=== PATIENT | male | born 1950 | race Caucasian/White ===

== ENCOUNTER 2018-07-10 18:44 | Inpatient (IN) | payer MEDICARE ==
[~2018-07-10] VITALS: Ht 170.2 cm; Wt 87.1 kg
[~2018-07-10 18:44] MED LIST: CRUTCH4 USE; Cipro500 MG PO; Flagyl500 MG PO; LEVSOD50; Percocet 5-3251 EACH PO; Zofran Odt4 MG SL
[2018-07-10] MEDS ORDERED: LEVSOD50 PO (19:01)
[2018-07-10 19:52] LABS: BASOPHILS ABSOLUTE AUTO 0.07 K/mm3 (0.00-0.23); BASOPHILS PERCENT AUTO 1 % (0-2); EOSINOPHILS PERCENT AUTO 1 % (0-6); Hematocrit 43.8 % (37.0-53.0); Hemoglobin 14.6 g/dL (13.5-17.5); IMMATURE GRAN ABSOLUTE AUTO 0.02 K/mm3 (0.00-0.10); IMMATURE GRAN PERCENT AUTO 0 % (0-1); LYMPHOCYTES ABSOLUTE AUTO 1.21 K/mm3 (0.84-5.20); LYMPHOCYTES PERCENT AUTO 13 % (21-46); MONOCYTES ABSOLUTE AUTO 0.98 K/mm3 (0.16-1.47); MONOCYTES PERCENT AUTO 10 % (4-13); Mean Corpuscular HGB 30.3 pg (26.0-34.0); Mean Corpuscular HGB Conc 33.3 g/dL (31.5-36.5); Mean Corpuscular Volume 91 fL (80-100); NEUTROPHILS ABSOLUTE AUTO 7.18 K/mm3 (1.96-9.15); NEUTROPHILS PERCENT AUTO 75 % (41-73); Platelet Count 230 K/mm3 (150-400); Red Blood Cell Count 4.82 M/mm3 (4.30-5.90); White Blood Cell Count 9.56 K/mm3 (4.00-11.30)
[2018-07-10 20:01] LABS: Alanine Aminotransfer (ALT/SGP 15 U/L (12-78); Albumin, Blood 3.7 g/dL (3.4-5.0); Alk Phos 77 U/L (50-136); Anion Gap 6 mmol/L (6-16); Aspartate Aminotrans (AST/SGOT 7 U/L (12-37); Bilirubin, Total 0.4 mg/dL (0.1-1.0); Blood Urea Nitrogen 20 mg/dL (8-24); Bun/Creatinine Ratio 17.4 (12.0-20.0); CO2, Blood 28 mmol/L (21-32); Chloride, Blood 105 mmol/L (98-108); Creatinine, Blood 1.15 mg/dL (0.60-1.20); Globulin, Blood 3.6 g/dL (2.2-4.0); Glomerular Filtration Rate >60 (60-); Glucose, Blood 106 mg/dL (70-99); Potassium, Blood 4.1 mmol/L (3.5-5.5); Sodium, Blood 139 mmol/L (136-145); Total Protein, Blood 7.3 g/dL (6.4-8.2); Troponin I <0.015 ng/mL (0.000-0.040)
[2018-07-10 21:18] LABS: CHOL/HDL RATIO 5.7; Cholesterol 187 mg/dL (50-200); HDL Cholesterol 33 mg/dL (>39); LDL/HDL RATIO 4.2; Low Density Lipoprotein Chol 139 mg/dL (0-110); Triglycerides 73 mg/dL (30-160); Very Low Density Lipoprot Chol 14 mg/dL (6-32)
[2018-07-10 21:33] LABS: Magnesium, Blood 2.1 mg/dL (1.6-2.4)
[2018-07-10 21:35] LABS: Thyroid Stimulating Hormone 4.87 uIU/mL (0.360-4.800)
[2018-07-10] MEDS ORDERED: Aspir 8181 MG PO (22:37)
[2018-07-11 01:13] LABS: Hematocrit 38.5 % (37.0-53.0); Hemoglobin 13.1 g/dL (13.5-17.5); Mean Corpuscular HGB 30.3 pg (26.0-34.0); Mean Corpuscular Volume 89 fL (80-100); Mean Platelet Volume 10.8 fL (9.1-12.4); Platelet Count 215 K/mm3 (150-400); RDW Coefficient Variation 12.9 % (11.7-14.2); RDW Standard Deviation 42.3 fL (35.1-46.3); Red Blood Cell Count 4.32 M/mm3 (4.30-5.90); White Blood Cell Count 11.72 K/mm3 (4.00-11.30)
[2018-07-11 01:35] LABS: Free Thyroxine 1.13 ng/dL (0.70-1.60)
[2018-07-11 01:36] LABS: Alanine Aminotransfer (ALT/SGP 17 U/L (12-78); Albumin, Blood 3.3 g/dL (3.4-5.0); Alk Phos 68 U/L (50-136); Anion Gap 6 mmol/L (6-16); Aspartate Aminotrans (AST/SGOT 11 U/L (12-37); Bilirubin, Total 0.5 mg/dL (0.1-1.0); Blood Urea Nitrogen 26 mg/dL (8-24); CO2, Blood 27 mmol/L (21-32); Calcium, Blood 8.7 mg/dL (8.5-10.1); Chloride, Blood 106 mmol/L (98-108); Creatinine, Blood 1.04 mg/dL (0.60-1.20); Globulin, Blood 3.3 g/dL (2.2-4.0); Glomerular Filtration Rate >60 (60-); Glucose, Blood 128 mg/dL (70-99); Potassium, Blood 3.8 mmol/L (3.5-5.5); Sodium, Blood 139 mmol/L (136-145); Total Protein, Blood 6.6 g/dL (6.4-8.2)
[2018-07-11 01:38] LABS: Triiodothyronine, Free 2.63 pg/mL (2.18-3.98)
[2018-07-12 08:22] LABS: BASOPHILS ABSOLUTE AUTO 0.05 K/mm3 (0.00-0.23); BASOPHILS PERCENT AUTO 1 % (0-2); EOSINOPHILS ABSOLUTE AUTO 0.12 K/mm3 (0.00-0.68); EOSINOPHILS PERCENT AUTO 1 % (0-6); Hematocrit 32.9 % (37.0-53.0); Hemoglobin 11.1 g/dL (13.5-17.5); IMMATURE GRAN ABSOLUTE AUTO 0.02 K/mm3 (0.00-0.10); IMMATURE GRAN PERCENT AUTO 0 % (0-1); LYMPHOCYTES PERCENT AUTO 23 % (21-46); MONOCYTES ABSOLUTE AUTO 1.04 K/mm3 (0.16-1.47); MONOCYTES PERCENT AUTO 12 % (4-13); Mean Corpuscular HGB 30.7 pg (26.0-34.0); Mean Corpuscular HGB Conc 33.7 g/dL (31.5-36.5); Mean Corpuscular Volume 91 fL (80-100); Mean Platelet Volume 11.2 fL (9.1-12.4); NEUTROPHILS ABSOLUTE AUTO 5.39 K/mm3 (1.96-9.15); NEUTROPHILS PERCENT AUTO 63 % (41-73); Platelet Count 212 K/mm3 (150-400); RDW Coefficient Variation 13.2 % (11.7-14.2); RDW Standard Deviation 43.7 fL (35.1-46.3); Red Blood Cell Count 3.62 M/mm3 (4.30-5.90); White Blood Cell Count 8.62 K/mm3 (4.00-11.30)
[2018-07-12 08:37] LABS: Alanine Aminotransfer (ALT/SGP 13 U/L (12-78); Albumin, Blood 3.4 g/dL (3.4-5.0); Albumin/Globulin Ratio 1.1 (0.8-1.8); Alk Phos 55 U/L (50-136); Anion Gap 7 mmol/L (6-16); Aspartate Aminotrans (AST/SGOT 12 U/L (12-37); Bilirubin, Total 0.5 mg/dL (0.1-1.0); Blood Urea Nitrogen 31 mg/dL (8-24); Bun/Creatinine Ratio 27.7 (12.0-20.0); CO2, Blood 25 mmol/L (21-32); Calcium, Blood 8.7 mg/dL (8.5-10.1); Chloride, Blood 110 mmol/L (98-108); Creatinine, Blood 1.12 mg/dL (0.60-1.20); Globulin, Blood 3.1 g/dL (2.2-4.0); Glomerular Filtration Rate >60 (60-); Glucose, Blood 83 mg/dL (70-99); Potassium, Blood 3.7 mmol/L (3.5-5.5); Sodium, Blood 142 mmol/L (136-145); Total Protein, Blood 6.5 g/dL (6.4-8.2)
[2018-07-13 04:23] LABS: BASOPHILS ABSOLUTE AUTO 0.06 K/mm3 (0.00-0.23); BASOPHILS PERCENT AUTO 1 % (0-2); EOSINOPHILS ABSOLUTE AUTO 0.12 K/mm3 (0.00-0.68); EOSINOPHILS PERCENT AUTO 1 % (0-6); Hematocrit 32.6 % (37.0-53.0); IMMATURE GRAN ABSOLUTE AUTO 0.02 K/mm3 (0.00-0.10); IMMATURE GRAN PERCENT AUTO 0 % (0-1); LYMPHOCYTES ABSOLUTE AUTO 1.96 K/mm3 (0.84-5.20); LYMPHOCYTES PERCENT AUTO 20 % (21-46); MONOCYTES ABSOLUTE AUTO 0.82 K/mm3 (0.16-1.47); MONOCYTES PERCENT AUTO 8 % (4-13); Mean Corpuscular HGB 30.9 pg (26.0-34.0); Mean Corpuscular HGB Conc 33.7 g/dL (31.5-36.5); Mean Corpuscular Volume 92 fL (80-100); Mean Platelet Volume 10.9 fL (9.1-12.4); NEUTROPHILS ABSOLUTE AUTO 6.76 K/mm3 (1.96-9.15); NEUTROPHILS PERCENT AUTO 70 % (41-73); Platelet Count 222 K/mm3 (150-400); RDW Standard Deviation 43.8 fL (35.1-46.3); Red Blood Cell Count 3.56 M/mm3 (4.30-5.90); White Blood Cell Count 9.74 K/mm3 (4.00-11.30)
[2018-07-13 04:48] LABS: Alanine Aminotransfer (ALT/SGP 18 U/L (12-78); Albumin, Blood 3.2 g/dL (3.4-5.0); Albumin/Globulin Ratio 1.1 (0.8-1.8); Alk Phos 55 U/L (50-136); Anion Gap 8 mmol/L (6-16); Aspartate Aminotrans (AST/SGOT 18 U/L (12-37); Bilirubin, Total 0.6 mg/dL (0.1-1.0); Blood Urea Nitrogen 21 mg/dL (8-24); Bun/Creatinine Ratio 22.7 (12.0-20.0); CO2, Blood 22 mmol/L (21-32); Calcium, Blood 8.5 mg/dL (8.5-10.1); Chloride, Blood 107 mmol/L (98-108); Creatinine, Blood 0.92 mg/dL (0.60-1.20); Glomerular Filtration Rate >60 (60-); Glucose, Blood 101 mg/dL (70-99); Potassium, Blood 3.8 mmol/L (3.5-5.5); Sodium, Blood 137 mmol/L (136-145); Total Protein, Blood 6.2 g/dL (6.4-8.2)
[2018-07-14 04:08] LABS: BASOPHILS ABSOLUTE AUTO 0.05 K/mm3 (0.00-0.23); BASOPHILS PERCENT AUTO 1 % (0-2); EOSINOPHILS ABSOLUTE AUTO 0.07 K/mm3 (0.00-0.68); EOSINOPHILS PERCENT AUTO 1 % (0-6); Hematocrit 30.2 % (37.0-53.0); Hemoglobin 10.2 g/dL (13.5-17.5); IMMATURE GRAN ABSOLUTE AUTO 0.02 K/mm3 (0.00-0.10); IMMATURE GRAN PERCENT AUTO 0 % (0-1); LYMPHOCYTES ABSOLUTE AUTO 1.77 K/mm3 (0.84-5.20); LYMPHOCYTES PERCENT AUTO 23 % (21-46); MONOCYTES ABSOLUTE AUTO 0.77 K/mm3 (0.16-1.47); MONOCYTES PERCENT AUTO 10 % (4-13); Mean Corpuscular HGB 30.2 pg (26.0-34.0); Mean Corpuscular HGB Conc 33.8 g/dL (31.5-36.5); Mean Platelet Volume 10.9 fL (9.1-12.4); NEUTROPHILS PERCENT AUTO 65 % (41-73); Platelet Count 239 K/mm3 (150-400); RDW Standard Deviation 42.1 fL (35.1-46.3); Red Blood Cell Count 3.38 M/mm3 (4.30-5.90); White Blood Cell Count 7.58 K/mm3 (4.00-11.30)
[2018-07-14 04:09] LABS: Mean Corpuscular Volume 89 fL (80-100)
[2018-07-14 04:32] LABS: Alanine Aminotransfer (ALT/SGP 25 U/L (12-78); Albumin, Blood 3.1 g/dL (3.4-5.0); Alk Phos 55 U/L (50-136); Anion Gap 8 mmol/L (6-16); Aspartate Aminotrans (AST/SGOT 21 U/L (12-37); Bilirubin, Total 0.6 mg/dL (0.1-1.0); Blood Urea Nitrogen 20 mg/dL (8-24); Bun/Creatinine Ratio 17.5 (12.0-20.0); CO2, Blood 23 mmol/L (21-32); Calcium, Blood 8.5 mg/dL (8.5-10.1); Chloride, Blood 107 mmol/L (98-108); Creatinine, Blood 1.14 mg/dL (0.60-1.20); Glomerular Filtration Rate >60 (60-); Glucose, Blood 95 mg/dL (70-99); Potassium, Blood 3.9 mmol/L (3.5-5.5); Sodium, Blood 138 mmol/L (136-145); Total Protein, Blood 6.1 g/dL (6.4-8.2)
[2018-07-18 05:19] LABS: BASOPHILS ABSOLUTE AUTO 0.05 K/mm3 (0.00-0.23); BASOPHILS PERCENT AUTO 0 % (0-2); EOSINOPHILS ABSOLUTE AUTO 0.02 K/mm3 (0.00-0.68); EOSINOPHILS PERCENT AUTO 0 % (0-6); Hematocrit 27.3 % (37.0-53.0); Hemoglobin 9.2 g/dL (13.5-17.5); IMMATURE GRAN ABSOLUTE AUTO 0.05 K/mm3 (0.00-0.10); IMMATURE GRAN PERCENT AUTO 0 % (0-1); LYMPHOCYTES ABSOLUTE AUTO 1.16 K/mm3 (0.84-5.20); LYMPHOCYTES PERCENT AUTO 9 % (21-46); MONOCYTES ABSOLUTE AUTO 1.05 K/mm3 (0.16-1.47); MONOCYTES PERCENT AUTO 9 % (4-13); Mean Corpuscular HGB 30.6 pg (26.0-34.0); Mean Corpuscular HGB Conc 33.7 g/dL (31.5-36.5); Mean Corpuscular Volume 91 fL (80-100); Mean Platelet Volume 11.4 fL (9.1-12.4); NEUTROPHILS ABSOLUTE AUTO 9.97 K/mm3 (1.96-9.15); NEUTROPHILS PERCENT AUTO 81 % (41-73); Platelet Count 275 K/mm3 (150-400); RDW Coefficient Variation 13.1 % (11.7-14.2); RDW Standard Deviation 42.7 fL (35.1-46.3); Red Blood Cell Count 3.01 M/mm3 (4.30-5.90)
[2018-07-18 05:48] LABS: Alanine Aminotransfer (ALT/SGP 21 U/L (12-78); Albumin, Blood 2.8 g/dL (3.4-5.0); Anion Gap 6 mmol/L (6-16); Aspartate Aminotrans (AST/SGOT 13 U/L (12-37); Blood Urea Nitrogen 34 mg/dL (8-24); Bun/Creatinine Ratio 35.2 (12.0-20.0); CO2, Blood 24 mmol/L (21-32); Calcium, Blood 8.2 mg/dL (8.5-10.1); Chloride, Blood 103 mmol/L (98-108); Creatinine, Blood 0.97 mg/dL (0.60-1.20); Glomerular Filtration Rate >60 (60-); Glucose, Blood 128 mg/dL (70-99); Magnesium, Blood 2.4 mg/dL (1.6-2.4); Phosphorus, Blood 2.6 mg/dL (2.5-4.9); Potassium, Blood 4.1 mmol/L (3.5-5.5); Sodium, Blood 133 mmol/L (136-145)
[2018-07-18 05:49] LABS: Alk Phos 52 U/L (50-136); Bilirubin, Total 0.3 mg/dL (0.1-1.0); Globulin, Blood 2.8 g/dL (2.2-4.0); Total Protein, Blood 5.6 g/dL (6.4-8.2)
[2018-07-18 11:34] LABS: IMMATURE RETIC FRACTION 9.5 % (2.3-16.0); RETIC HGB EQUIVALENT 33.2 pg (28.20-36.60); RETICULOCYTE ABSOLUTE 0.0736 M/mm3 (0.0200-0.1100); RETICULOCYTE COUNT PERCENT 2.46 % (0.50-2.50)
[2018-07-18 11:47] LABS: Percent Saturation 11.9 % (20.0-50.0)
[2018-07-19 05:09] LABS: BASOPHILS ABSOLUTE AUTO 0.06 K/mm3 (0.00-0.23); BASOPHILS PERCENT AUTO 1 % (0-2); EOSINOPHILS ABSOLUTE AUTO 0.06 K/mm3 (0.00-0.68); EOSINOPHILS PERCENT AUTO 1 % (0-6); Hematocrit 26.9 % (37.0-53.0); Hemoglobin 8.8 g/dL (13.5-17.5); IMMATURE GRAN ABSOLUTE AUTO 0.04 K/mm3 (0.00-0.10); IMMATURE GRAN PERCENT AUTO 0 % (0-1); LYMPHOCYTES ABSOLUTE AUTO 1.84 K/mm3 (0.84-5.20); LYMPHOCYTES PERCENT AUTO 20 % (21-46); MONOCYTES ABSOLUTE AUTO 0.96 K/mm3 (0.16-1.47); MONOCYTES PERCENT AUTO 10 % (4-13); Mean Corpuscular HGB 30.6 pg (26.0-34.0); Mean Corpuscular HGB Conc 32.7 g/dL (31.5-36.5); Mean Corpuscular Volume 93 fL (80-100); Mean Platelet Volume 11.4 fL (9.1-12.4); NEUTROPHILS ABSOLUTE AUTO 6.27 K/mm3 (1.96-9.15); NEUTROPHILS PERCENT AUTO 68 % (41-73); Platelet Count 304 K/mm3 (150-400); RDW Coefficient Variation 13.1 % (11.7-14.2); RDW Standard Deviation 44.8 fL (35.1-46.3); Red Blood Cell Count 2.88 M/mm3 (4.30-5.90); White Blood Cell Count 9.23 K/mm3 (4.00-11.30)
[2018-07-19 05:29] LABS: Anion Gap 7 mmol/L (6-16); Blood Urea Nitrogen 25 mg/dL (8-24); Bun/Creatinine Ratio 24.3 (12.0-20.0); CO2, Blood 25 mmol/L (21-32); Calcium, Blood 8.2 mg/dL (8.5-10.1); Chloride, Blood 104 mmol/L (98-108); Creatinine, Blood 1.03 mg/dL (0.60-1.20); Glomerular Filtration Rate >60 (60-); Glucose, Blood 94 mg/dL (70-99); Potassium, Blood 4.4 mmol/L (3.5-5.5); Sodium, Blood 136 mmol/L (136-145)
[2018-07-20 05:01] LABS: BASOPHILS ABSOLUTE AUTO 0.05 K/mm3 (0.00-0.23); BASOPHILS PERCENT AUTO 1 % (0-2); EOSINOPHILS ABSOLUTE AUTO 0.06 K/mm3 (0.00-0.68); EOSINOPHILS PERCENT AUTO 1 % (0-6); Hematocrit 25.3 % (37.0-53.0); Hemoglobin 8.4 g/dL (13.5-17.5); IMMATURE GRAN ABSOLUTE AUTO 0.03 K/mm3 (0.00-0.10); IMMATURE GRAN PERCENT AUTO 0 % (0-1); LYMPHOCYTES ABSOLUTE AUTO 1.91 K/mm3 (0.84-5.20); LYMPHOCYTES PERCENT AUTO 28 % (21-46); MONOCYTES ABSOLUTE AUTO 0.73 K/mm3 (0.16-1.47); MONOCYTES PERCENT AUTO 11 % (4-13); Mean Corpuscular HGB 30.9 pg (26.0-34.0); Mean Corpuscular HGB Conc 33.2 g/dL (31.5-36.5); Mean Corpuscular Volume 93 fL (80-100); NEUTROPHILS ABSOLUTE AUTO 4.03 K/mm3 (1.96-9.15); NEUTROPHILS PERCENT AUTO 59 % (41-73); Platelet Count 311 K/mm3 (150-400); RDW Coefficient Variation 13.2 % (11.7-14.2); RDW Standard Deviation 44.7 fL (35.1-46.3); Red Blood Cell Count 2.72 M/mm3 (4.30-5.90); White Blood Cell Count 6.81 K/mm3 (4.00-11.30)
[2018-07-20 05:28] LABS: Anion Gap 8 mmol/L (6-16); Blood Urea Nitrogen 19 mg/dL (8-24); Bun/Creatinine Ratio 17.8 (12.0-20.0); CO2, Blood 25 mmol/L (21-32); Calcium, Blood 8.2 mg/dL (8.5-10.1); Chloride, Blood 105 mmol/L (98-108); Creatinine, Blood 1.07 mg/dL (0.60-1.20); Glomerular Filtration Rate >60 (60-); Glucose, Blood 90 mg/dL (70-99); Sodium, Blood 138 mmol/L (136-145)
[2018-07-21 05:00] LABS: BASOPHILS ABSOLUTE AUTO 0.05 K/mm3 (0.00-0.23); BASOPHILS PERCENT AUTO 1 % (0-2); EOSINOPHILS ABSOLUTE AUTO 0.08 K/mm3 (0.00-0.68); EOSINOPHILS PERCENT AUTO 1 % (0-6); Hematocrit 25.8 % (37.0-53.0); Hemoglobin 8.4 g/dL (13.5-17.5); IMMATURE GRAN ABSOLUTE AUTO 0.03 K/mm3 (0.00-0.10); IMMATURE GRAN PERCENT AUTO 0 % (0-1); LYMPHOCYTES ABSOLUTE AUTO 1.58 K/mm3 (0.84-5.20); LYMPHOCYTES PERCENT AUTO 22 % (21-46); MONOCYTES PERCENT AUTO 10 % (4-13); Mean Corpuscular HGB 30.2 pg (26.0-34.0); Mean Corpuscular HGB Conc 32.6 g/dL (31.5-36.5); Mean Corpuscular Volume 93 fL (80-100); Mean Platelet Volume 10.6 fL (9.1-12.4); NEUTROPHILS ABSOLUTE AUTO 4.65 K/mm3 (1.96-9.15); NEUTROPHILS PERCENT AUTO 66 % (41-73); Platelet Count 343 K/mm3 (150-400); RDW Coefficient Variation 13.2 % (11.7-14.2); RDW Standard Deviation 44.5 fL (35.1-46.3); Red Blood Cell Count 2.78 M/mm3 (4.30-5.90); White Blood Cell Count 7.09 K/mm3 (4.00-11.30)
[2018-07-21] MEDS ORDERED: ATOR80 PO (11:36)
[2018-07-21] MEDS ORDERED: CYAN500 (11:42)
[2018-07-21] MEDS ORDERED: FOLI1 PO (11:45)
[2018-07-21] MEDS ORDERED: Prinivil10 MG PO (11:47)
[2018-07-21] MEDS ORDERED: METO50 PO (11:49)
[2018-07-21] MEDS ORDERED: Nicoderm Cq1 EAC1 TOP (11:54)
[2018-07-21] MEDS ORDERED: PANT40 PO (11:58)
[2018-07-21] MEDS ORDERED: Seroquel100 MG PO (12:00)
[2018-07-21] MEDS ORDERED: SUCR1 (12:02)
[2018-07-21] MEDS ORDERED: OLAN10A PO (14:16)
== END 2018-07-21 14:37 | disposition home or self-care (01) | DRG 304 ==
LOC: ER 18:44 → ICUW 20:42 → MEDS 20:42 → ICUW 22:11 → MEDS 07-14 21:02 → ENPENDDIS 07-21 11:46 → MEDS 07-21 14:37
PROVIDERS: Emergency Medicine; Family Medicine; Hospitalist; Internal Medicine; Internal Medicine Gastroenterology; Nurse Practitioner Acute Care; ADMIT Internal Medicine
PROC: 0DD78ZX Extraction of Stomach, Pylorus, Via Natural or Artificial Opening Endoscopic, Diagnostic (ICD-10-PCS; 2018-07-19)
PROC: 0DD68ZX Extraction of Stomach, Via Natural or Artificial Opening Endoscopic, Diagnostic (ICD-10-PCS; principal; 2018-07-19 11:00)
DX: I16.1 Hypertensive emergency (principal); K22.11 Ulcer of esophagus with bleeding; I67.4 Hypertensive encephalopathy; D62 Acute posthemorrhagic anemia; Z87.820 Personal history of traumatic brain injury; Z87.898 Personal history of other specified conditions; F17.210 Nicotine dependence, cigarettes, uncomplicated; E03.9 Hypothyroidism, unspecified; E78.5 Hyperlipidemia, unspecified; Z66 Do not resuscitate; Z68.30 Body mass index [BMI] 30.0-30.9, adult; E66.9 Obesity, unspecified; Z91.14 Patient's other noncompliance with medication regimen; R45.1 Restlessness and agitation; G31.09 Other frontotemporal neurocognitive disorder; D64.9 Anemia, unspecified; K22.2 Esophageal obstruction; K44.9 Diaphragmatic hernia without obstruction or gangrene
CPT/HCPCS: 36415; 71046; 80048; 80053; 80061; 82607; 82728; 82746; 82947; 83540; 83550; 83735; 83880; 84100; 84439; 84443; 84481; 84484; 85025; 85027; 85045; 88305; 88342; 93005; 93010; 93306; 96374; 96375; 99285-25; C9113; J0360; J1170; J1630; J1650; J2060; J2916; J7050; J7120

== ENCOUNTER 2018-10-20 06:42 | Day surgery (SDC) | payer MEDICARE ==
[~2018-10-20] VITALS: Ht 162.6 cm; Wt 87.0 kg
[~2018-10-20 06:42] MED LIST changes: +ATOR80 PO; +Aspir 8181 MG PO; +CYAN500; +FOLI1 PO; +LEVSOD50 PO; +METO50 PO; +Nicoderm Cq1 EAC1 TOP; +OLAN10A PO; +PANT40 PO; +Prinivil10 MG PO; +SUCR1; +Seroquel100 MG PO
== END 2018-10-20 09:00 | disposition home or self-care (01) ==
LOC: ORSCSDS 06:42
PROVIDERS: Internal Medicine Gastroenterology
PROC: 0D758ZZ Dilation of Esophagus, Via Natural or Artificial Opening Endoscopic (ICD-10-PCS; principal; 2018-10-20 08:00)
PROC: 0DB98ZX Excision of Duodenum, Via Natural or Artificial Opening Endoscopic, Diagnostic (ICD-10-PCS; principal; 2018-10-20 08:00)
DX: K22.2 Esophageal obstruction (principal); K31.7 Polyp of stomach and duodenum; K29.80 Duodenitis without bleeding; K44.9 Diaphragmatic hernia without obstruction or gangrene; E78.5 Hyperlipidemia, unspecified; E03.9 Hypothyroidism, unspecified; G25.0 Essential tremor; F17.210 Nicotine dependence, cigarettes, uncomplicated; Z79.82 Long term (current) use of aspirin; Z79.899 Other long term (current) drug therapy
CPT/HCPCS: 88305; J1980; J2405; J2704; J7120

== ENCOUNTER 2019-10-21 00:27 | Inpatient (IN) | payer OTHER ==
[~2019-10-21] VITALS: Ht 162.6 cm; Wt 91.9 kg
[2019-10-21 01:11] LABS: Hematocrit 41.5 % (37.0-53.0); Hemoglobin 14.3 g/dL (13.5-17.5); Mean Corpuscular HGB Conc 34.5 g/dL (31.5-36.5); Mean Corpuscular Volume 90 fL (80-100); Mean Platelet Volume 11.3 fL (9.1-12.4); Platelet Count 171 K/mm3 (150-400); RDW Coefficient Variation 13.5 % (11.7-14.2); RDW Standard Deviation 44.4 fL (35.1-46.3); Red Blood Cell Count 4.61 M/mm3 (4.30-5.90); White Blood Cell Count 18.09 K/mm3 (4.00-11.30)
[2019-10-21 01:28] LABS: Alanine Aminotransfer (ALT/SGP 581 U/L (12-78); Albumin, Blood 3.1 g/dL (3.4-5.0); Albumin/Globulin Ratio 0.9 (0.8-1.8); Alk Phos 189 U/L (50-136); Anion Gap 7 mmol/L (6-16); Aspartate Aminotrans (AST/SGOT 317 U/L (12-37); Bilirubin, Total 2.7 mg/dL (0.1-1.0); Blood Urea Nitrogen 21 mg/dL (8-24); Bun/Creatinine Ratio 17.5 (12.0-20.0); CO2, Blood 25 mmol/L (21-32); Calcium, Blood 8.7 mg/dL (8.5-10.1); Chloride, Blood 108 mmol/L (98-108); Globulin, Blood 3.3 g/dL (2.2-4.0); Glomerular Filtration Rate >60 (60-); Glucose, Blood 109 mg/dL (70-99); Potassium, Blood 2.7 mmol/L (3.5-5.5); Sodium, Blood 140 mmol/L (136-145); Total Protein, Blood 6.4 g/dL (6.4-8.2)
[2019-10-21 01:30] LABS: BAND PERCENT MAN 9 % (0-8); BASOPHILS PERCENT MAN 0 % (0-2); EOSINOPHILS ABSOLUTE MAN 0.18 K/mm3 (0.00-0.68); EOSINOPHILS PERCENT MAN 1 % (0-6); LYMPHOCYTES ABSOLUTE MAN 0.72 K/mm3 (0.84-5.20); LYMPHOCYTES PERCENT MAN 4 % (21-46); MONOCYTES ABSOLUTE MAN 0.72 K/mm3 (0.16-1.47); MONOCYTES PERCENT MAN 4 % (4-13); NEUTROPHILS ABSOLUTE MAN 16.46 K/mm3 (1.96-9.15); SEG NEUTROPHILS PERCENT MAN 82 % (41-73); TOTAL CELLS COUNTED 100
[2019-10-21 02:45] LABS: Source, Urine Clean Catch
[2019-10-21 02:48] LABS: Troponin I 0.04 ng/mL (0.000-0.040)
[2019-10-21 02:55] LABS: Bilirubin, Urine Neg (Neg); Blood, Urine Neg (Neg); Glucose Qualitative, Urine Neg (Neg); Ketones, Urine Neg (Neg); Leukocyte Esterase, Urine Neg (Neg); Nitrite, Urine Neg (Neg); Protein, Urine Neg (Neg); Specific Gravity, Urine 1.005 (1.003-1.022); Urobilinogen, Urine NORM (Normal)
[2019-10-21 02:56] LABS: Appearance, Urine Clear (Clear); Color, Urine Yellow (P-Yellow)
--- NOTE | 2019-10-21 07:10 | NUR ---
SHIFT SUMMARY PT NEW ADMIT THIS AM. CONFUSED/REFUSING CARE AT TIME OF ADMISSION, REQUESTING TO SLEEP. ORIENTED TO ROOM + CALL LIGHT USE. PT REFUSED TELEMETRY PLACEMENT + IV POTASSIUM RIDERS AT TIME OF ADMISSION. PT ALLOWED IVF TO BE STARTED BY ED RN. PT DENIED PAIN/NAUSEA SINCE ADMISSION. PT POOR HISTORIAN + DID NOT RESPOND WHEN ASKED ABOUT HOME MEDICATIONS. RESTING IN BED AT THIS TIME WITH BED ALARM ON FOR SAFETY. REPORT TO DAY SHIFT RN. TELEMTRY NOTIFIED OF PT'S REFUSAL AT ADMISSION + DAY SHIFT RN WILL ATTEMPT TO EDUCATE AND PLACE TELEMETRY. CALL LIGHT WITHIN REACH.
--- NOTE | 2019-10-21 07:41 | NUR ---
MORNING ASSESSMENT PT CALM AND COOPERATIVE AT THIS TIME. ALERT AND ORIENTED. PT DENIES PAIN, N/V, SOB. IVF INFUSING. EXPLAINED TREATMENT PLAN TO PT: NPO, IMPORTANCE OF TAKING BP MEDICATIONS, TELE MONITORING, AND IV POTASSIUM. PT AGREEABLE TO TREATMENT AND CARE AND VERBALIZED AN UNDERSTANDING. URINAL PROVIDED AT BEDSIDE. WARM BLANKET GIVEN TO PT. BED ALARM IN PLACE FOR SAFETY PT HAS HX OF TBI AND CAN BE FORGETFUL/CONFUSED AT TIMES. CALL LIGHT WITHIN REACH.
--- NOTE | 2019-10-21 11:23 | NUR ---
DR. ALSTON PLANNING TO KEEP PT NPO AND RECHECK LABS IN THE MORNING. DR. ALSTON TALKED TO ABIEL WHO IS PT'S LEGAL GUARDIAN ABOUT TREATMENT PLAN. THIS RN SPOKE WITH YAMINI MORALES RN WHO IS TO FAX OVER PT'S POLST.
--- NOTE | 2019-10-21 16:02 | NUR ---
SHIFT SUMMARY NO ACUTE CHANGES TODAY. PT REMAINS ALERT AND ORIENTED TO SELF AND FOLLOWING DIRECTIONS, BUT IS OTHERWISE PLEASANTLY CONFUSED ABOUT WHY HE IS AT THE HOSPITAL. PT NOT TRYING TO GET OUT OF BED OR PULLING AT LINES. PT CONT TO DENY PAIN, N/V, AND REPORTS NO COMPLAINTS. STANDS AT THE SIDE OF THE BED WITH SUPERVISION TO USE THE URNIAL TO VOID. IVF + ABX INFUSING PER ORDERS. TELE IN PLACE. PT REMAINS NPO AND PLANNING TO HAVE SURGERY TOMORROW WITH DR. ALSTON. CALL LIGHT WITHIN REACH.
--- NOTE | 2019-10-21 22:13 | NUR ---
DISCUSSION WITH TIFFANIE AT THE BEGINNING OF THE SHIFT, PT STATED "I DONT KNOW HOW ELSE TO TELL YOU ALL, BUT I AM NOT HAVING SURGERY". HE DOES REMEMBER HAVING A CONVERASTION WITH DR ALSTON ABOUT THE SURGERY, BUT DOES NOT FEEL THAT HE NEEDS IT. HE IS HOWEVER CONFUSED ABOUT HOW LONG HE HAS BEEN IN THE HOSPITAL AND WHY HE WAS BROUGHT HERE. HE IS ALSO QUITE SUSPICIOUS, WHEN TOLD ABOUT HIS DIAGNOSIS. i ALSO SPOKE TO THE TITUS BEEBE AFTER SHE SPOKE WITH THE PATIENT BY PHONE. SHE WAS TOLD THE SAME THING BY THE PATIENT, THAT HE DID NOT WANT TO HAVE SURGERY, UNTI IT WAS BAD ENOUGH THAT HE COULD NO LONGER STAND IT.
--- NOTE | 2019-10-22 03:27 | NUR ---
RN NOTIFIED OF URINE COLOR.
[2019-10-22 04:18] LABS: BASOPHILS ABSOLUTE AUTO 0.03 K/mm3 (0.00-0.23); BASOPHILS PERCENT AUTO 0 % (0-2); EOSINOPHILS ABSOLUTE AUTO 0.01 K/mm3 (0.00-0.68); EOSINOPHILS PERCENT AUTO 0 % (0-6); Hematocrit 36.4 % (37.0-53.0); Hemoglobin 12.3 g/dL (13.5-17.5); IMMATURE GRAN ABSOLUTE AUTO 0.19 K/mm3 (0.00-0.10); IMMATURE GRAN PERCENT AUTO 1 % (0-1); LYMPHOCYTES ABSOLUTE AUTO 0.74 K/mm3 (0.84-5.20); LYMPHOCYTES PERCENT AUTO 4 % (21-46); MONOCYTES ABSOLUTE AUTO 1.46 K/mm3 (0.16-1.47); MONOCYTES PERCENT AUTO 8 % (4-13); Mean Corpuscular HGB 30.7 pg (26.0-34.0); Mean Corpuscular HGB Conc 33.8 g/dL (31.5-36.5); Mean Corpuscular Volume 91 fL (80-100); Mean Platelet Volume 11.4 fL (9.1-12.4); NEUTROPHILS ABSOLUTE AUTO 16.14 K/mm3 (1.96-9.15); NEUTROPHILS PERCENT AUTO 87 % (41-73); Platelet Count 134 K/mm3 (150-400); RDW Coefficient Variation 13.9 % (11.7-14.2); Red Blood Cell Count 4.01 M/mm3 (4.30-5.90); White Blood Cell Count 18.57 K/mm3 (4.00-11.30)
[2019-10-22 04:37] LABS: Alanine Aminotransfer (ALT/SGP 262 U/L (12-78); Albumin, Blood 2.7 g/dL (3.4-5.0); Albumin/Globulin Ratio 0.8 (0.8-1.8); Alk Phos 137 U/L (50-136); Anion Gap 5 mmol/L (6-16); Aspartate Aminotrans (AST/SGOT 78 U/L (12-37); Bilirubin, Total 1.2 mg/dL (0.1-1.0); Blood Urea Nitrogen 22 mg/dL (8-24); Bun/Creatinine Ratio 20.4 (12.0-20.0); CO2, Blood 23 mmol/L (21-32); Calcium, Blood 8.4 mg/dL (8.5-10.1); Chloride, Blood 112 mmol/L (98-108); Creatinine, Blood 1.08 mg/dL (0.60-1.20); Globulin, Blood 3.3 g/dL (2.2-4.0); Glomerular Filtration Rate >60 (60-); Glucose, Blood 107 mg/dL (70-99); Potassium, Blood 3.8 mmol/L (3.5-5.5); Sodium, Blood 140 mmol/L (136-145)
--- NOTE | 2019-10-22 05:23 | NUR ---
SHIFT SUMMARY PATIENT HAS HAD NO COMPLAINTS OF PAIN. HE HAS GENERAL WEAKNESS WHEN GETTING OUT OF BED. ONCE HE IS UP, HE WALKS SLOWLY AND ABLE TO AMBULATE TO THE BR TO VOID. HE DOES HAVE URINARY INCONTINENCE, HIS URINE IS DARK YELLOW IN HIS ATTENDS. HE IS COOPERATIVE WITH CARE THIS SHIFT. WE HAVE NOT DISCUSSED HIS POSSIBLE SURGERY THIS AM. THE POA WILL BE TALKING TO THE SURGEON TODAY TO DISCUSS THE PLAN FOR THE DAY. PATIENT HAS BEEN USING HIS CALL LIGHT, AND OCCASIONALLY DOES NOT REMEMBER WHY HE CALLED. BED ALARM HAS BEEN ON ALL NIGHT, BED IN LOWEST POSTITION, CALL LIGHT IN REACH. NO ACUTE CHANGES.
--- NOTE | 2019-10-22 10:57 | NUR ---
DR PEREZ HERE RECENTLY TO SEE PT. DISCUSSED PT'S STATUS. REPORTS MAY D/C TELE.
--- NOTE | 2019-10-22 11:26 | NUR ---
POWER OF CAR RESTORER HERE TO DISCUSS PENDING OR.
--- NOTE | 2019-10-22 12:37 | NUR ---
DR ALSTON HERE TO TALK WITH PT AND POWER OF SERVER DEVELOPER.
--- NOTE | 2019-10-22 15:23 | NUR ---
POA CALLED FOR UPDATE, UPDATE GIVEN. POA REPORTED THAT PT HAS POLST STATING DNR. SEE COPY. DR NOTIFIED, SEE ORDER.
--- NOTE | 2019-10-22 16:10 | NUR ---
SHIFT SUMMARY PT DID NOT WISH TO HAVE SURGERY TODAY, POA IN TO TALK WITH PT. DR ALSTON ALSO IN TO TALK WITH PT AND POA AT SAME TIME, PT CONT TO DENY WANTING TO HAVE PROCEDURE. PT ATE LUNCH WITHOUT DIFFICULY, CONTINUES TO DENY PAIN. POA BOUGHT PT SOME GLASSES AND THEY WERE BROUGHT TO HIM. PT BEEN VOIDING, UP WITH STEADY GAIT. BED ALARM ON RELATED TO TBI. CODE STATUS WAS CHANGED TODAY TO DNR AFTER DISCUSSING PAPERWORK ON CHART WITH POA WHO REPORTED THAT HE HAS BEEN A DNR, WAS NOTIFIED, SEE POLST AND ORDER. PURPLE BAND WAS VERIFIED WITH OTHER RN AND PLACED TO PT'S L WRIST.
--- NOTE | 2019-10-23 05:00 | NUR ---
SHIFT SUMMARY PT APPEARS TO HAVE SLEPT T/O MOST OF SHIFT. PLEASANT AND COOPERATIVE BUT CAN BE IMPULSIVE AT TIMES WITH GETTING OUT OF BED. TEMPERATURE WAS AT 100.8 AT BEGINNING OF SHIFT, NOW 98.6. DENIES ABD PAIN OR DISCOMFORT. ABLE TO AMBULATE TO BATHROOM WITH SBA. ABX ADMINISTERED PER ORDERS. IS CURRENTLY RESTING IN BED WITH CALL LIGHT IN REACH. WILL CONT TO MONITOR AND GIVE REPORT TO ONCOMING RN.
--- NOTE | 2019-10-23 06:33 | NUR ---
SURGERY PT STATES HE IS NOW WILLING TO HAVE THE PAU SURGERY. WILL INFORM ONCOMING RN TO HAVE HER NOTIFY POA AND SURGEON.
--- NOTE | 2019-10-23 08:24 | NUR ---
PT WISHES TO HAVE SURGERY NOTIFIED DR PEREZ AND DR ALSTON. REMOVED PT'S WATER/HELD BREAKFAST.
[2019-10-23 11:57] LABS: BASOPHILS ABSOLUTE AUTO 0.04 K/mm3 (0.00-0.23); BASOPHILS PERCENT AUTO 0 % (0-2); EOSINOPHILS ABSOLUTE AUTO 0.04 K/mm3 (0.00-0.68); EOSINOPHILS PERCENT AUTO 0 % (0-6); Hematocrit 35.4 % (37.0-53.0); Hemoglobin 12.2 g/dL (13.5-17.5); IMMATURE GRAN ABSOLUTE AUTO 0.08 K/mm3 (0.00-0.10); IMMATURE GRAN PERCENT AUTO 1 % (0-1); LYMPHOCYTES ABSOLUTE AUTO 0.77 K/mm3 (0.84-5.20); LYMPHOCYTES PERCENT AUTO 6 % (21-46); MONOCYTES ABSOLUTE AUTO 1.54 K/mm3 (0.16-1.47); MONOCYTES PERCENT AUTO 11 % (4-13); Mean Corpuscular HGB Conc 34.5 g/dL (31.5-36.5); Mean Corpuscular Volume 90 fL (80-100); NEUTROPHILS ABSOLUTE AUTO 11.57 K/mm3 (1.96-9.15); NEUTROPHILS PERCENT AUTO 82 % (41-73); Platelet Count 119 K/mm3 (150-400); RDW Coefficient Variation 14.3 % (11.7-14.2); RDW Standard Deviation 47.1 fL (35.1-46.3); Red Blood Cell Count 3.94 M/mm3 (4.30-5.90); White Blood Cell Count 14.04 K/mm3 (4.00-11.30)
[2019-10-23 12:14] LABS: Alanine Aminotransfer (ALT/SGP 145 U/L (12-78); Albumin, Blood 2.4 g/dL (3.4-5.0); Albumin/Globulin Ratio 0.7 (0.8-1.8); Alk Phos 121 U/L (50-136); Anion Gap 5 mmol/L (6-16); Aspartate Aminotrans (AST/SGOT 35 U/L (12-37); Bilirubin, Total 0.7 mg/dL (0.1-1.0); Blood Urea Nitrogen 20 mg/dL (8-24); Bun/Creatinine Ratio 18.3 (12.0-20.0); CO2, Blood 24 mmol/L (21-32); Calcium, Blood 8.2 mg/dL (8.5-10.1); Chloride, Blood 110 mmol/L (98-108); Creatinine, Blood 1.09 mg/dL (0.60-1.20); Globulin, Blood 3.5 g/dL (2.2-4.0); Glomerular Filtration Rate >60 (60-); Glucose, Blood 103 mg/dL (70-99); Potassium, Blood 3.7 mmol/L (3.5-5.5); Sodium, Blood 139 mmol/L (136-145); Total Protein, Blood 5.9 g/dL (6.4-8.2)
--- NOTE | 2019-10-23 14:36 | NUR ---
PT TO SURGERY
--- NOTE | 2019-10-23 14:47 | NUR ---
REPORT GIVEN TO SNOW BOWMAN. TURNING OVER CARE.
--- NOTE | 2019-10-23 17:54 | NUR ---
ASSUMED CARE OF PT POST OP, S/P LAP PAU, AWAKE, DENIES ANY PAIN OR NAUSEA AT THIS TIME, MONITOR VS, AND OTHER CHANGES, MEDICATE FOR PAIN PRN.
[2019-10-24 03:37] LABS: BASOPHILS PERCENT AUTO 0 % (0-2); EOSINOPHILS PERCENT AUTO 0 % (0-6); Hematocrit 36.7 % (37.0-53.0); Hemoglobin 12.2 g/dL (13.5-17.5); IMMATURE GRAN ABSOLUTE AUTO 0.06 K/mm3 (0.00-0.10); IMMATURE GRAN PERCENT AUTO 1 % (0-1); LYMPHOCYTES ABSOLUTE AUTO 0.41 K/mm3 (0.84-5.20); LYMPHOCYTES PERCENT AUTO 4 % (21-46); MONOCYTES ABSOLUTE AUTO 0.78 K/mm3 (0.16-1.47); MONOCYTES PERCENT AUTO 7 % (4-13); Mean Corpuscular HGB 30.4 pg (26.0-34.0); Mean Corpuscular HGB Conc 33.2 g/dL (31.5-36.5); Mean Corpuscular Volume 92 fL (80-100); Mean Platelet Volume 12.2 fL (9.1-12.4); NEUTROPHILS ABSOLUTE AUTO 9.23 K/mm3 (1.96-9.15); NEUTROPHILS PERCENT AUTO 88 % (41-73); Platelet Count 142 K/mm3 (150-400); RDW Coefficient Variation 14.3 % (11.7-14.2); RDW Standard Deviation 48.5 fL (35.1-46.3); Red Blood Cell Count 4.01 M/mm3 (4.30-5.90); White Blood Cell Count 10.48 K/mm3 (4.00-11.30)
[2019-10-24 03:56] LABS: Alanine Aminotransfer (ALT/SGP 134 U/L (12-78); Albumin, Blood 2.2 g/dL (3.4-5.0); Albumin/Globulin Ratio 0.6 (0.8-1.8); Alk Phos 113 U/L (50-136); Anion Gap 6 mmol/L (6-16); Aspartate Aminotrans (AST/SGOT 50 U/L (12-37); Bilirubin, Total 0.5 mg/dL (0.1-1.0); Blood Urea Nitrogen 20 mg/dL (8-24); Bun/Creatinine Ratio 20.4 (12.0-20.0); CO2, Blood 24 mmol/L (21-32); Calcium, Blood 8.2 mg/dL (8.5-10.1); Chloride, Blood 107 mmol/L (98-108); Creatinine, Blood 0.98 mg/dL (0.60-1.20); Globulin, Blood 3.9 g/dL (2.2-4.0); Glomerular Filtration Rate >60 (60-); Glucose, Blood 163 mg/dL (70-99); Potassium, Blood 4.1 mmol/L (3.5-5.5); Sodium, Blood 137 mmol/L (136-145); Total Protein, Blood 6.1 g/dL (6.4-8.2)
--- NOTE | 2019-10-24 07:33 | NUR ---
SUMMARY S/P LAP PAU TONIGHT WITH MINIMAL DISCOMFORT. VOIDING AND TOLERATIN PO FLUIDS AND LIKES POPSICLES.NO DISTRESS TONIGHT.
--- NOTE | 2019-10-24 16:02 | NUR ---
PT CALLED THIS RN INTO ROOM AT ABOUT 1545 STATING THAT HE WAS CONCERNED ABOUT WHERE HE WOULD BE GOING AFTER DISCHARGE. PT REPORTS THAT HE FEELS WELL ENOUGH TO GO HOME AND DOSEN'T THINK ITS NECCECARY THAT HE GO TO [facility]. HE REPORTS THAT HE NEEDS A SCHOOL GUIDANCE COUNSELOR AND WANTS TO GO HOME WHEN DISCHARGED. PT ALSO REPORTS THAT HE SPOKE TO HIS ON THE PHONE NOT TOO LONG AGO. THIS RN ASSURED PT THAT WHEN HE IS DISCHARGED HE WILL BE LIVING IN THE SAFEST PLACE. PT SEEMED ANXIOUS AND FRUSTRATED WITH THE SITUATION, BUT WAS OPEN TO THIS RN'S EDUCATION AND REASSURANCE. WILL CTM.
--- NOTE | 2019-10-24 17:14 | NUR ---
SUMMARY: PT IS POD1 LAP PAU. NO ACUTE CHANGE TODAY, ABLE TO TOLERATE REG DIET FOR LUNCH AND DINNER. DENIES NAUSEA/PAIN. UP WITH SBA TO BATHROOM FREQUENTLY. LAP SITES WNL. PLAN IS FOR IV ABX TOMORROW AND DC TO [facility]. PT EX /KIRA MADE AWARE OF THIS PLAN. WILL CTM AND REPORT TO RIK ADAMSON.
--- NOTE | 2019-10-24 20:27 | NUR ---
BED ALARM GOING OFF, ENTERED PT ROOM. PT SITTING ON EDGE OF BED AND DEMANDED I GIVE HIM HIS PHONE SO HE COULD CALL A ARMY MANAGER. GAVE PT PHONE. TOLD ME "GET OUT OF MY ROOM, ILL HAVE YOUR JOB." I TOLD PT HE WAS UNABLE TO GO OUT TO SMOKE CURRENTLY WHICH ANGERED HIM. PT REFUSES TO GET BACK IN BED AND KEEP BED ALARM ON, HE DEMANDED I LEAVE AND SHUT HIS DOOR.
--- NOTE | 2019-10-24 20:37 | NUR ---
ASKED PT IF HE WOULD BE WILLING TO TRY A NICOTINE PATCH IF THE HOSPITALIST WOULD ORDER IT. THE PT CALLED ME MULTIPLE EXPLETIVES AND TOLD ME TO LEAVE HIS ROOM. HE DEMANDED AGAIN I LET HIM GO OUT TO SMOKE AND THAT THE PREVIOUS NURSES HAVE LET HIM MULTIPLE TIMES.
--- NOTE | 2019-10-24 22:20 | NUR ---
SECURITY IN TO SEE PT. PT STILL VERY AGITATED. ASKED TO SPEAK TO WOODEN BOAT BUILDER. PT REPORTS WANTING TO LEAVE. PT STATES "I AM LEAVING TONIGHT"
--- NOTE | 2019-10-24 23:50 | NUR ---
RECEIVED HAND OFF FROM Gary VILLEGAS RN USING SBAR AT 2300HRS. PT HAD BECOME UNCOOPERATIVE AND HAD DECIDED THAT HE WAS GOING TO LEAVE. HE APPROACHED THE NURSES STATION AT 2315HRS AND ASKED TO SPEAK WITH SOMEONE IN AUTHORITY. HE ASKED Emily PERERA CNA IF SHE HAD THE AUTHORITY TO MAKE DECISIONS. HE NOTED NURSING APPROACHING NURSES STATION AND THEN STATED, "AH, HERE IS THE ONE I WANT TO TALK TO!" HE WAS ESCORTED BACK TO HIS ROOM AND HE ASKED IF HE COULD HAVE ANOTHER NURSE IN PLACE OF SANDRA. NURSING INFORMED HIM THAT THIS NURSE WAS NOW HIS NURSE. HE VOICED RELIEF AND ACCEPTANCE OF THIS NURSES CARE. DISCUSSED WITH PT THAT HE ALREADY HAD A NICOTINE PATCH IN PLACE, BUT THAT I WOULD BE HAPPY TO REPLACE IT IF HE NEEDED IT TO BE CHANGED. HE VERBALIZED THAT HE WAS FINE WITH IT STAYING UNTIL MORNING IF I TOLD HIME IT WAS OK TILL THEN. PT TOOK HIS HS MEDS AND 0000HRS ABX WITHOUT ISSUE. 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 HE WAS VERY NICE AND APPRECIATIVE OF THE TIME NURSING TOOK IN HIS CARE AND ADDRESSING HIS NEEDS. DENIES FURTHER NEEDS OR WANTS AT THIS TIME. SAFETY MEASURES IN PLACE. WILL CONTINUE TO MONITOR.
--- NOTE | 2019-10-25 00:10 | NUR ---
GAVE REPORT TO SNOW ESTRADA AT APPROX 2300 USING SBAR. PT REQUESTED CHANGE IN NURSING CARE. PT RECEPTIVE OF NEW NURSE AND ACCEPTED HER CARE.
--- NOTE | 2019-10-25 05:18 | NUR ---
SHIFT SUMMARY LYING IN SEMI FOWLERS WITH EYES CLOSED. HAS CONTINUED TO BE COOPERATIVE WITH CARE. PAIN MANAGED WITH PRN PAIN MEDS. STERI STRIPS TO ABD X4 ARE C/D/I. TO RETURNING TO [facility] TODAY. DENIES FURTHER NEEDS OR WANTS AT THIS TIME. SAFETY MEASURES IN PLACE. WILL GIVE HAND OFF TO ONCOMING SHIFT USING SBAR DURING BEDSIDE REPORT.
[2019-10-25] MEDS ORDERED: HYDR1TAB94 PO (08:17)
--- NOTE | 2019-10-25 08:36 | NUR ---
DISCHARGE DISCHARGE ORDERS FAXED OVER TO [facility] AND REPORT GIVEN TO JEFFREY ADAMSON. TRANSPORT TO COME FLATTENING PRESS OPERATOR PT AT 0915. IV DC'D. GATHERING PERSONAL BELONGINGS AT THIS TIME.
== END 2019-10-25 09:13 | disposition home or self-care (01) | DRG 854 ==
LOC: ER 00:27 → SURS 04:52
PROVIDERS: Emergency Medicine; Internal Medicine; Surgery; ADMIT Internal Medicine
PROC: 0FT44ZZ Resection of Gallbladder, Percutaneous Endoscopic Approach (ICD-10-PCS; principal; 2019-10-23 14:00)
DX: A41.9 Sepsis, unspecified organism (principal); K80.00 Calculus of gallbladder with acute cholecystitis without obstruction; I10 Essential (primary) hypertension; Z87.820 Personal history of traumatic brain injury; E03.9 Hypothyroidism, unspecified; E78.5 Hyperlipidemia, unspecified; F17.210 Nicotine dependence, cigarettes, uncomplicated; Z66 Do not resuscitate; G25.0 Essential tremor; E87.6 Hypokalemia
CPT/HCPCS: 36415; 71045; 76705; 80053; 81003; 83605; 83690; 83735; 83880; 84132; 84484; 85025; 87040; 88304; 96365; 96368; 99285-25; A9270-GY; J0692; J1100; J1885; J2250; J2405; J2704; J2710; J3010; J3480; J7030; J7050; J7120

== ENCOUNTER → 2020-04-13 | Outpatient (CLI) | payer OTHER ==
[~2020-04-13] MED LIST changes: +HYDR1TAB94 PO
[2020-04-13 13:35] LABS: BASOPHILS ABSOLUTE AUTO 0.04 K/mm3 (0.00-0.23); BASOPHILS PERCENT AUTO 1 % (0-2); EOSINOPHILS ABSOLUTE AUTO 0.14 K/mm3 (0.00-0.68); EOSINOPHILS PERCENT AUTO 3 % (0-6); Hematocrit 39.2 % (37.0-53.0); Hemoglobin 13.1 g/dL (13.5-17.5); IMMATURE GRAN ABSOLUTE AUTO 0.01 K/mm3 (0.00-0.10); IMMATURE GRAN PERCENT AUTO 0 % (0-1); LYMPHOCYTES PERCENT AUTO 24 % (21-46); MONOCYTES ABSOLUTE AUTO 0.61 K/mm3 (0.16-1.47); MONOCYTES PERCENT AUTO 12 % (4-13); Mean Corpuscular HGB 29.6 pg (26.0-34.0); Mean Corpuscular HGB Conc 33.4 g/dL (31.5-36.5); Mean Corpuscular Volume 89 fL (80-100); Mean Platelet Volume 11.4 fL (9.1-12.4); NEUTROPHILS ABSOLUTE AUTO 3.06 K/mm3 (1.96-9.15); NEUTROPHILS PERCENT AUTO 60 % (41-73); Platelet Count 196 K/mm3 (150-400); RDW Coefficient Variation 13.9 % (11.7-14.2); RDW Standard Deviation 44.8 fL (35.1-46.3); Red Blood Cell Count 4.43 M/mm3 (4.30-5.90); White Blood Cell Count 5.06 K/mm3 (4.00-11.30)
[2020-04-13 14:30] LABS: Alanine Aminotransfer (ALT/SGP 22 U/L (12-78); Albumin, Blood 3.3 g/dL (3.4-5.0); Albumin/Globulin Ratio 0.9 (0.8-1.8); Alk Phos 95 U/L (50-136); Anion Gap 6 mmol/L (6-16); Aspartate Aminotrans (AST/SGOT 17 U/L (12-37); Bilirubin, Total 0.5 mg/dL (0.1-1.0); Blood Urea Nitrogen 16 mg/dL (8-24); Bun/Creatinine Ratio 13.8 (12.0-20.0); CO2, Blood 28 mmol/L (21-32); Calcium, Blood 9.4 mg/dL (8.5-10.1); Chloride, Blood 107 mmol/L (98-108); Creatinine, Blood 1.16 mg/dL (0.60-1.20); Globulin, Blood 3.6 g/dL (2.2-4.0); Glomerular Filtration Rate >60 (60-); Glucose, Blood 91 mg/dL (70-99); Potassium, Blood 3.7 mmol/L (3.5-5.5); Sodium, Blood 141 mmol/L (136-145); Total Protein, Blood 6.9 g/dL (6.4-8.2)
== END | disposition home or self-care (01) ==
LOC: LAB 12:42 → LAB SHORT 12:42
PROVIDERS: Physician Assistant Medical
DX: I10 Essential (primary) hypertension (principal)
CPT/HCPCS: 80053; 82550; 85025

== ENCOUNTER → 2020-06-14 | Outpatient (CLI) | payer OTHER ==
[2020-06-14 13:11] LABS: Source, Urine Clean Catch
[2020-06-14 13:47] LABS: Appearance, Urine Clear (Clear); Bilirubin, Urine Neg (Neg); Blood, Urine Neg (Neg); Color, Urine Yellow (P-Yellow); Glucose Qualitative, Urine Neg (Neg); Ketones, Urine Neg (Neg); Leukocyte Esterase, Urine Neg (Neg); Nitrite, Urine Neg (Neg); Protein, Urine Neg (Neg); Urobilinogen, Urine NORM (Normal)
== END | disposition home or self-care (01) ==
LOC: LAB 09:25
PROVIDERS: Physician Assistant Medical
DX: N39.0 Urinary tract infection, site not specified (principal)
CPT/HCPCS: 81003

== ENCOUNTER 2021-02-27 19:43 | Emergency (ER) | payer OTHER ==
[~2021-02-27] VITALS: Ht 167.6 cm; Wt 90.7 kg
[2021-02-27] MEDS ORDERED: Prozac40 MG PO (20:15)
[2021-02-27] MEDS ORDERED: FOLI1 PO (20:15)
[2021-02-27] MEDS ORDERED: HYDCHL25 PO (20:15)
[2021-02-27] MEDS ORDERED: LEVSOD25 PO (20:16)
[2021-02-27] MEDS ORDERED: GUAI600T33 PO (20:16)
[2021-02-27] MEDS ORDERED: PANT40 PO (20:18)
[2021-02-27 20:19] LABS: BASOPHILS ABSOLUTE AUTO 0.01 K/mm3 (0.00-0.23); BASOPHILS PERCENT AUTO 0 % (0-2); EOSINOPHILS PERCENT AUTO 0 % (0-6); Hematocrit 37.3 % (37.0-53.0); IMMATURE GRAN ABSOLUTE AUTO 0.01 K/mm3 (0.00-0.10); IMMATURE GRAN PERCENT AUTO 0 % (0-1); LYMPHOCYTES ABSOLUTE AUTO 0.42 K/mm3 (0.84-5.20); LYMPHOCYTES PERCENT AUTO 7 % (21-46); MONOCYTES PERCENT AUTO 3 % (4-13); Mean Corpuscular HGB 30.4 pg (26.0-34.0); Mean Corpuscular HGB Conc 34.9 g/dL (31.5-36.5); Mean Corpuscular Volume 87 fL (80-100); Mean Platelet Volume 11.7 fL (9.1-12.4); NEUTROPHILS ABSOLUTE AUTO 5.27 K/mm3 (1.96-9.15); NEUTROPHILS PERCENT AUTO 89 % (41-73); Platelet Count 165 K/mm3 (150-400); RDW Coefficient Variation 13.8 % (11.7-14.2); RDW Standard Deviation 43.9 fL (35.1-46.3); Red Blood Cell Count 4.28 M/mm3 (4.30-5.90); White Blood Cell Count 5.91 K/mm3 (4.00-11.30)
[2021-02-27] MEDS ORDERED: Vitamin B-121000 MCG PO (20:19)
[2021-02-27] MEDS ORDERED: QUET200 PO (20:19)
[2021-02-27] MEDS ORDERED: VITAMIN D31000 UNI1 PO (20:20)
[2021-02-27] MEDS ORDERED: Acetaminophen650 M1 PO (20:20)
[2021-02-27] MEDS ORDERED: ONDA4 PO (20:22)
[2021-02-27] MEDS ORDERED: Haldol5 MG/1 ML (20:22)
[2021-02-27 20:37] LABS: Albumin, Blood 2.4 g/dL (3.4-5.0); Albumin/Globulin Ratio 0.6 (0.8-1.8); Bilirubin, Total 0.9 mg/dL (0.1-1.0); Bun/Creatinine Ratio 33.6 (12.0-20.0); Calcium, Blood 8.2 mg/dL (8.5-10.1); Creatinine, Blood 1.31 mg/dL (0.60-1.20); Globulin, Blood 3.8 g/dL (2.2-4.0); Potassium, Blood 3.4 mmol/L (3.5-5.5); Total Protein, Blood 6.2 g/dL (6.4-8.2)
[2021-02-27] MEDS ORDERED: Vibramycin100 MG PO (21:19)
[2021-02-27] MEDS ORDERED: DEXA4 PO (21:19)
== END 2021-02-27 23:10 | disposition home or self-care (01) ==
LOC: ER 19:43
PROVIDERS: Emergency Medicine
DX: U07.1 COVID-19 (principal); R09.02 Hypoxemia; J18.9 Pneumonia, unspecified organism; F03.90 Unspecified dementia, unspecified severity, without behavioral disturbance, psychotic disturbance, mood disturbance, and anxiety; E86.0 Dehydration; E03.9 Hypothyroidism, unspecified; Z87.891 Personal history of nicotine dependence; Z88.0 Allergy status to penicillin; Z79.899 Other long term (current) drug therapy; Z79.890 Hormone replacement therapy
CPT/HCPCS: 71045; 80053; 85025; 93005; 93010; 99285-25

== ENCOUNTER → 2021-03-14 | Outpatient (CLI) | payer OTHER ==
[~2021-03-14] MED LIST changes: +Acetaminophen650 M1 PO; +DEXA4 PO; +GUAI600T33 PO; +HYDCHL25 PO; +Haldol5 MG/1 ML; +LEVSOD25 PO; +ONDA4 PO; +Prozac40 MG PO; +QUET200 PO; +VITAMIN D31000 UNI1 PO; +Vibramycin100 MG PO; +Vitamin B-121000 MCG PO
[2021-03-14 13:27] LABS: BASOPHILS ABSOLUTE AUTO 0.05 K/mm3 (0.00-0.23); BASOPHILS PERCENT AUTO 1 % (0-2); EOSINOPHILS ABSOLUTE AUTO 0.03 K/mm3 (0.00-0.68); EOSINOPHILS PERCENT AUTO 1 % (0-6); Hematocrit 36.5 % (37.0-53.0); Hemoglobin 12.1 g/dL (13.5-17.5); IMMATURE GRAN ABSOLUTE AUTO 0.02 K/mm3 (0.00-0.10); IMMATURE GRAN PERCENT AUTO 0 % (0-1); LYMPHOCYTES PERCENT AUTO 18 % (21-46); MONOCYTES ABSOLUTE AUTO 0.73 K/mm3 (0.16-1.47); MONOCYTES PERCENT AUTO 15 % (4-13); Mean Corpuscular HGB 30.4 pg (26.0-34.0); Mean Corpuscular HGB Conc 33.2 g/dL (31.5-36.5); Mean Corpuscular Volume 92 fL (80-100); NEUTROPHILS ABSOLUTE AUTO 3.28 K/mm3 (1.96-9.15); NEUTROPHILS PERCENT AUTO 65 % (41-73); RDW Coefficient Variation 14.5 % (11.7-14.2); RDW Standard Deviation 48.2 fL (35.1-46.3); Red Blood Cell Count 3.98 M/mm3 (4.30-5.90); White Blood Cell Count 5.01 K/mm3 (4.00-11.30)
[2021-03-14 13:43] LABS: Mean Platelet Volume 11.7 fL (9.1-12.4); Platelet Count 148 K/mm3 (150-400)
[2021-03-14 23:05] LABS: Alanine Aminotransfer (ALT/SGP 38 U/L (12-78); Albumin, Blood 2.4 g/dL (3.4-5.0); Albumin/Globulin Ratio 0.6 (0.8-1.8); Alk Phos 72 U/L (50-136); Anion Gap 8 mmol/L (6-16); Aspartate Aminotrans (AST/SGOT 28 U/L (12-37); Bilirubin, Total 0.4 mg/dL (0.1-1.0); Blood Urea Nitrogen 16 mg/dL (8-24); Bun/Creatinine Ratio 14.3 (12.0-20.0); CHOL/HDL RATIO 4.9; CO2, Blood 24 mmol/L (21-32); Calcium, Blood 8.7 mg/dL (8.5-10.1); Chloride, Blood 107 mmol/L (98-108); Cholesterol 180 mg/dL (50-200); Creatinine, Blood 1.12 mg/dL (0.60-1.20); Globulin, Blood 3.7 g/dL (2.2-4.0); Glomerular Filtration Rate >60 (60-); Glucose, Blood 73 mg/dL (70-99); HDL Cholesterol 37 mg/dL (>39); LDL/HDL RATIO 3.3; Low Density Lipoprotein Chol 122 mg/dL (0-110); Potassium, Blood 4.1 mmol/L (3.5-5.5); Sodium, Blood 139 mmol/L (136-145); Total Protein, Blood 6.1 g/dL (6.4-8.2); Triglycerides 105 mg/dL (30-160); Very Low Density Lipoprot Chol 21 mg/dL (6-32)
== END | disposition home or self-care (01) ==
LOC: LAB 07:45 → LAB SHORT 07:45
PROVIDERS: Physician Assistant Medical
DX: E78.5 Hyperlipidemia, unspecified (principal); I10 Essential (primary) hypertension
CPT/HCPCS: 80053; 80061; 84443; 85025

== ENCOUNTER → 2021-08-27 | Outpatient (CLI) | payer OTHER ==
[2021-08-27 13:37] LABS: BASOPHILS ABSOLUTE AUTO 0.05 K/mm3 (0.00-0.23); BASOPHILS PERCENT AUTO 1 % (0-2); EOSINOPHILS ABSOLUTE AUTO 0.07 K/mm3 (0.00-0.68); EOSINOPHILS PERCENT AUTO 1 % (0-6); Hematocrit 40.1 % (37.0-53.0); Hemoglobin 13.3 g/dL (13.5-17.5); IMMATURE GRAN ABSOLUTE AUTO 0.02 K/mm3 (0.00-0.10); IMMATURE GRAN PERCENT AUTO 0 % (0-1); LYMPHOCYTES ABSOLUTE AUTO 1.54 K/mm3 (0.84-5.20); LYMPHOCYTES PERCENT AUTO 25 % (21-46); MONOCYTES ABSOLUTE AUTO 0.69 K/mm3 (0.16-1.47); MONOCYTES PERCENT AUTO 11 % (4-13); Mean Corpuscular HGB 29.8 pg (26.0-34.0); Mean Corpuscular HGB Conc 33.2 g/dL (31.5-36.5); Mean Corpuscular Volume 90 fL (80-100); Mean Platelet Volume 11.6 fL (9.1-12.4); NEUTROPHILS ABSOLUTE AUTO 3.77 K/mm3 (1.96-9.15); NEUTROPHILS PERCENT AUTO 62 % (41-73); Platelet Count 217 K/mm3 (150-400); RDW Standard Deviation 45.9 fL (35.1-46.3); Red Blood Cell Count 4.46 M/mm3 (4.30-5.90); White Blood Cell Count 6.14 K/mm3 (4.00-11.30)
[2021-08-27 15:07] LABS: Alanine Aminotransfer (ALT/SGP 23 U/L (12-78); Albumin, Blood 3.2 g/dL (3.4-5.0); Albumin/Globulin Ratio 1.1 (0.8-1.8); Alk Phos 80 U/L (50-136); Anion Gap 6 mmol/L (6-16); Aspartate Aminotrans (AST/SGOT 11 U/L (12-37); Bilirubin, Total 0.4 mg/dL (0.1-1.0); Blood Urea Nitrogen 19 mg/dL (8-24); Bun/Creatinine Ratio 17.6 (12.0-20.0); CHOL/HDL RATIO 6.1; CO2, Blood 27 mmol/L (21-32); Calcium, Blood 8.7 mg/dL (8.5-10.1); Chloride, Blood 107 mmol/L (98-108); Cholesterol 215 mg/dL (50-200); Creatinine, Blood 1.08 mg/dL (0.60-1.20); Glomerular Filtration Rate >60 (60-); Glucose, Blood 88 mg/dL (70-99); HDL Cholesterol 35 mg/dL (>39); LDL/HDL RATIO 4.4; Low Density Lipoprotein Chol 155 mg/dL (0-110); Potassium, Blood 3.9 mmol/L (3.5-5.5); Sodium, Blood 140 mmol/L (136-145); Total Protein, Blood 6.2 g/dL (6.4-8.2); Triglycerides 127 mg/dL (30-160); Very Low Density Lipoprot Chol 25 mg/dL (6-32)
== END ==
LOC: LAB 12:15 → LAB SHORT 12:15
PROVIDERS: Physician Assistant Medical
DX: E78.5 Hyperlipidemia, unspecified (principal); I10 Essential (primary) hypertension
CPT/HCPCS: 80053; 80061; 84443; 85025

== ENCOUNTER 2022-01-11 07:22 | Emergency (ER) | payer OTHER ==
[~2022-01-11] VITALS: Ht 162.6 cm; Wt 72.6 kg
[2022-01-11 07:57] LABS: BASOPHILS ABSOLUTE AUTO 0.04 K/mm3 (0.00-0.23); BASOPHILS PERCENT AUTO 1 % (0-2); EOSINOPHILS ABSOLUTE AUTO 0.04 K/mm3 (0.00-0.68); EOSINOPHILS PERCENT AUTO 1 % (0-6); Hematocrit 39.3 % (37.0-53.0); Hemoglobin 13.5 g/dL (13.5-17.5); IMMATURE GRAN ABSOLUTE AUTO 0.02 K/mm3 (0.00-0.10); IMMATURE GRAN PERCENT AUTO 0 % (0-1); LYMPHOCYTES PERCENT AUTO 11 % (21-46); MONOCYTES ABSOLUTE AUTO 0.78 K/mm3 (0.16-1.47); MONOCYTES PERCENT AUTO 11 % (4-13); Mean Corpuscular HGB 30.5 pg (26.0-34.0); Mean Corpuscular HGB Conc 34.4 g/dL (31.5-36.5); Mean Corpuscular Volume 89 fL (80-100); Mean Platelet Volume 10.5 fL (9.1-12.4); NEUTROPHILS ABSOLUTE AUTO 5.43 K/mm3 (1.96-9.15); NEUTROPHILS PERCENT AUTO 76 % (41-73); Platelet Count 187 K/mm3 (150-400); RDW Coefficient Variation 13.4 % (11.7-14.2); RDW Standard Deviation 43.9 fL (35.1-46.3); Red Blood Cell Count 4.42 M/mm3 (4.30-5.90); White Blood Cell Count 7.11 K/mm3 (4.00-11.30)
[2022-01-11 08:08] LABS: Albumin, Blood 3.3 g/dL (3.4-5.0); Albumin/Globulin Ratio 0.9 (0.8-1.8); Bilirubin, Total 0.6 mg/dL (0.1-1.0); Bun/Creatinine Ratio 18.3 (12.0-20.0); Calcium, Blood 9.2 mg/dL (8.5-10.1); Creatinine, Blood 0.99 mg/dL (0.60-1.20); Globulin, Blood 3.5 g/dL (2.2-4.0); Potassium, Blood 2.8 mmol/L (3.5-5.5); Total Protein, Blood 6.8 g/dL (6.4-8.2)
== END 2022-01-11 15:05 | disposition home or self-care (01) ==
LOC: ER 07:22
PROVIDERS: Family Medicine
DX: R55 Syncope and collapse (principal); Z87.891 Personal history of nicotine dependence; Z79.899 Other long term (current) drug therapy
CPT/HCPCS: 71045; 80053; 83735; 84484; 85025; 93005; 93010; A9270; J3480; J7030; J7050

== ENCOUNTER → 2022-06-13 | Outpatient (CLI) | payer OTHER ==
[2022-06-13 11:08] LABS: BASOPHILS ABSOLUTE AUTO 0.07 K/mm3 (0.00-0.23); BASOPHILS PERCENT AUTO 1 % (0-2); EOSINOPHILS ABSOLUTE AUTO 0.07 K/mm3 (0.00-0.68); EOSINOPHILS PERCENT AUTO 1 % (0-6); Hematocrit 41.7 % (37.0-53.0); Hemoglobin 13.8 g/dL (13.5-17.5); IMMATURE GRAN ABSOLUTE AUTO 0.01 K/mm3 (0.00-0.10); IMMATURE GRAN PERCENT AUTO 0 % (0-1); LYMPHOCYTES ABSOLUTE AUTO 1.27 K/mm3 (0.84-5.20); LYMPHOCYTES PERCENT AUTO 24 % (21-46); MONOCYTES ABSOLUTE AUTO 0.51 K/mm3 (0.16-1.47); MONOCYTES PERCENT AUTO 10 % (4-13); Mean Corpuscular HGB 30.1 pg (26.0-34.0); Mean Corpuscular HGB Conc 33.1 g/dL (31.5-36.5); Mean Corpuscular Volume 91 fL (80-100); Mean Platelet Volume 10.9 fL (9.1-12.4); NEUTROPHILS ABSOLUTE AUTO 3.42 K/mm3 (1.96-9.15); NEUTROPHILS PERCENT AUTO 64 % (41-73); Platelet Count 243 K/mm3 (150-400); RDW Coefficient Variation 14.2 % (11.7-14.2); RDW Standard Deviation 47.1 fL (35.1-46.3); Red Blood Cell Count 4.59 M/mm3 (4.30-5.90); White Blood Cell Count 5.35 K/mm3 (4.00-11.30)
[2022-06-13 11:44] LABS: Alanine Aminotransfer (ALT/SGP 24 U/L (12-78); Albumin, Blood 3.3 g/dL (3.4-5.0); Albumin/Globulin Ratio 0.9 (0.8-1.8); Alk Phos 74 U/L (50-136); Anion Gap 7 mmol/L (6-16); Aspartate Aminotrans (AST/SGOT 17 U/L (12-37); Bilirubin, Total 0.4 mg/dL (0.1-1.0); Blood Urea Nitrogen 24 mg/dL (8-24); Bun/Creatinine Ratio 20.5 (12.0-20.0); CHOL/HDL RATIO 6.4; CO2, Blood 27 mmol/L (21-32); Calcium, Blood 9.4 mg/dL (8.5-10.1); Chloride, Blood 107 mmol/L (98-108); Cholesterol 224 mg/dL (50-200); Creatinine, Blood 1.17 mg/dL (0.60-1.20); Globulin, Blood 3.7 g/dL (2.2-4.0); Glomerular Filtration Rate 66 (60-); Glucose, Blood 92 mg/dL (70-99); HDL Cholesterol 35 mg/dL (>39); LDL/HDL RATIO 4.4; Low Density Lipoprotein Chol 154 mg/dL (0-110); Potassium, Blood 3.9 mmol/L (3.5-5.5); Sodium, Blood 141 mmol/L (136-145); Triglycerides 177 mg/dL (30-160); Very Low Density Lipoprot Chol 35 mg/dL (6-32)
== END | disposition home or self-care (01) ==
LOC: LAB SHORT 07:35 → LAB 07:35
PROVIDERS: Physician Assistant Medical
DX: I10 Essential (primary) hypertension (principal)
CPT/HCPCS: 80053; 80061; 84443; 85025

== ENCOUNTER → 2023-07-08 | Outpatient (CLI) | payer OTHER ==
[2023-07-09 00:31] LABS: Microalb/Creat Ratio UR, Rand 6.368 mg/g (0.000-30.000); Microalbumin, Random Urine 13.5 mg/L (0.000-20.000)
== END | disposition home or self-care (01) ==
LOC: LAB SHORT 22:09 → LAB 22:09
PROVIDERS: Physician Assistant Medical
DX: I10 Essential (primary) hypertension (principal)
CPT/HCPCS: 82043; 82570

== ENCOUNTER → 2023-07-09 | Outpatient (CLI) | payer OTHER ==
[2023-07-09 19:40] LABS: BASOPHILS ABSOLUTE AUTO 0.07 K/mm3 (0.00-0.23); BASOPHILS PERCENT AUTO 1 % (0-2); EOSINOPHILS ABSOLUTE AUTO 0.13 K/mm3 (0.00-0.68); EOSINOPHILS PERCENT AUTO 2 % (0-6); Hematocrit 37.5 % (37.0-53.0); Hemoglobin 12.5 g/dL (13.5-17.5); IMMATURE GRAN ABSOLUTE AUTO 0.01 K/mm3 (0.00-0.10); IMMATURE GRAN PERCENT AUTO 0 % (0-1); LYMPHOCYTES ABSOLUTE AUTO 1.54 K/mm3 (0.84-5.20); LYMPHOCYTES PERCENT AUTO 27 % (21-46); MONOCYTES ABSOLUTE AUTO 0.65 K/mm3 (0.16-1.47); MONOCYTES PERCENT AUTO 11 % (4-13); Mean Corpuscular HGB 29.8 pg (26.0-34.0); Mean Corpuscular HGB Conc 33.3 g/dL (31.5-36.5); Mean Corpuscular Volume 89 fL (80-100); NEUTROPHILS ABSOLUTE AUTO 3.38 K/mm3 (1.96-9.15); NEUTROPHILS PERCENT AUTO 59 % (41-73); Platelet Count 239 K/mm3 (150-400); RDW Standard Deviation 45.4 fL (35.1-46.3); White Blood Cell Count 5.78 K/mm3 (4.00-11.30)
[2023-07-11 09:13] LABS: A/G RATIO 1.7 (1.2-2.2); BILIRUBIN, TOTAL 0.5 mg/dL (0.0-1.2); CALCIUM, SERUM 9.6 mg/dL (8.6-10.2); CREATININE, SERUM 1.19 mg/dL (0.76-1.27); GLOBULIN, TOTAL 2.3 g/dL (1.5-4.5); PROTEIN, TOTAL, SERUM 6.1 g/dL (6.0-8.5)
[2023-07-13 06:11] LABS: HEMOGLOBIN A1C 5.8 % (4.8-5.6)
== END ==
LOC: LAB 18:37 → LAB SHORT 18:37
PROVIDERS: Physician Assistant Medical
DX: I10 Essential (primary) hypertension (principal); R73.09 Other abnormal glucose; E03.9 Hypothyroidism, unspecified; E55.9 Vitamin D deficiency, unspecified
CPT/HCPCS: 80053; 82306; 83036; 84443; 85025

== ENCOUNTER 2024-05-09 01:25 | Emergency (ER) | payer OTHER ==
[~2024-05-09] VITALS: Ht 177.8 cm; Wt 90.7 kg
[2024-05-09 02:49] VITALS: BP 147/93
== END 2024-05-09 03:48 | disposition home or self-care (01) ==
LOC: ER 01:25
DX: S00.83XA Contusion of other part of head, initial encounter (principal); F03.90 Unspecified dementia, unspecified severity, without behavioral disturbance, psychotic disturbance, mood disturbance, and anxiety; E03.9 Hypothyroidism, unspecified; G25.0 Essential tremor; E78.5 Hyperlipidemia, unspecified; Z87.820 Personal history of traumatic brain injury; Z87.891 Personal history of nicotine dependence; Z88.0 Allergy status to penicillin; Z79.890 Hormone replacement therapy; Z79.899 Other long term (current) drug therapy; W18.30XA Fall on same level, unspecified, initial encounter
CPT/HCPCS: 70450; 99284-25

== ENCOUNTER 2024-07-08 23:46 | Emergency (ER) | payer OTHER ==
[~2024-07-08] VITALS: Ht 170.2 cm; Wt 72.6 kg
[2024-07-09] MEDS ORDERED: NS 1,000 ML IV ONE (00:16)
[2024-07-09] MEDS ORDERED: NS 500 ML IV ONE (00:30)
[2024-07-09 00:49] LABS: BASOPHILS ABSOLUTE AUTO 0.03 K/mm3 (0.00-0.23); BASOPHILS PERCENT AUTO 0 % (0-2); EOSINOPHILS ABSOLUTE AUTO 0.01 K/mm3 (0.00-0.68); EOSINOPHILS PERCENT AUTO 0 % (0-6); Hematocrit 38.5 % (37.0-53.0); Hemoglobin 12.8 g/dL (13.5-17.5); IMMATURE GRAN ABSOLUTE AUTO 0.04 K/mm3 (0.00-0.10); IMMATURE GRAN PERCENT AUTO 0 % (0-1); LYMPHOCYTES ABSOLUTE AUTO 0.52 K/mm3 (0.84-5.20); LYMPHOCYTES PERCENT AUTO 5 % (21-46); MONOCYTES ABSOLUTE AUTO 1.07 K/mm3 (0.16-1.47); MONOCYTES PERCENT AUTO 10 % (4-13); Mean Corpuscular HGB 28.9 pg (26.0-34.0); Mean Corpuscular HGB Conc 33.2 g/dL (31.5-36.5); Mean Corpuscular Volume 87 fL (80-100); Mean Platelet Volume 11.2 fL (9.1-12.4); NEUTROPHILS ABSOLUTE AUTO 8.96 K/mm3 (1.96-9.15); NEUTROPHILS PERCENT AUTO 84 % (41-73); Platelet Count 248 K/mm3 (150-400); RDW Coefficient Variation 15.2 % (11.7-14.2); RDW Standard Deviation 48.9 fL (35.1-46.3); Red Blood Cell Count 4.43 M/mm3 (4.30-5.90); White Blood Cell Count 10.63 K/mm3 (4.00-11.30)
[2024-07-09 01:02] LABS: D-Dimer, Quantitative 1.09 mg/L FEU (0.00-0.52); International Normalized Ratio 1.12; Prothrombin Time Results 11.9 Sec (9.7-11.5)
[2024-07-09 01:16] LABS: Albumin, Blood 2.7 g/dL (3.4-5.0); Albumin/Globulin Ratio 0.6 (0.8-1.8); Bilirubin, Total 1.2 mg/dL (0.1-1.0); Bun/Creatinine Ratio 23.2 (12.0-20.0); Calcium, Blood 9.5 mg/dL (8.5-10.1); Creatinine, Blood 1.42 mg/dL (0.60-1.20); Globulin, Blood 4.5 g/dL (2.2-4.0); Potassium, Blood 3.5 mmol/L (3.5-5.5); Thyroid Stimulating Hormone 4.9 uIU/mL (0.360-4.800); Total Protein, Blood 7.2 g/dL (6.4-8.2)
[2024-07-09 02:00] VITALS: BP 97/76
== END 2024-07-09 02:20 | disposition home or self-care (01) ==
LOC: ER 23:46
PROVIDERS: Emergency Medicine
DX: Z51.5 Encounter for palliative care (principal); R55 Syncope and collapse; I21.3 ST elevation (STEMI) myocardial infarction of unspecified site; Z87.891 Personal history of nicotine dependence; E78.5 Hyperlipidemia, unspecified; Z87.820 Personal history of traumatic brain injury; Z88.0 Allergy status to penicillin; Z79.899 Other long term (current) drug therapy; Z59.89 Other problems related to housing and economic circumstances
CPT/HCPCS: 70450; 71045; 72125; 80053; 83880; 84443; 84484; 85025; 85379; 85610; 85730; 93005; 93010; 99284-25; J7030

== ENCOUNTER 2025-02-24 11:29 | Observation (INO) | payer OTHER ==
[~2025-02-24] VITALS: Ht 172.7 cm; Wt 78.6 kg
[2025-02-24] MEDS ORDERED: Ondansetron HCl 2 MG / ML 2ML Vial ONE (11:45)
[2025-02-24 11:55] LABS: Calcium, Ionized (POC) 1.11 mmol/L (1.10-1.46); Chloride (POC) 106 mmol/L (98-108); Creatinine (POC) 1.8 mg/dL (0.8-1.3); Glucose (ISTAT POC) 133 mg/dL (70-99); Hematocrit (POC) 22.0 % (41.0-53.0); Hemoglobin (POC) 7.5 g/dL (13.5-17.5); Potassium (POC) 3.7 mmol/L (3.5-5.5); Sodium (POC) 140 mmol/L (135-148); Total CO2 (POC) 19 mmol/L (21-32)
[2025-02-24] MEDS ORDERED: Morphine Sulfate 4 MG/1 ML Injection IV ONE ×2 (12:00→15:05)
[2025-02-24 12:03] LABS: BASOPHILS ABSOLUTE AUTO 0.02 K/mm3 (0.00-0.23); BASOPHILS PERCENT AUTO 0 % (0-2); EOSINOPHILS ABSOLUTE AUTO 0.00 K/mm3 (0.00-0.68); EOSINOPHILS PERCENT AUTO 0 % (0-6); Hematocrit 23.9 % (37.0-53.0); Hemoglobin 7.1 g/dL (13.5-17.5); IMMATURE GRAN ABSOLUTE AUTO 0.09 K/mm3 (0.00-0.10); IMMATURE GRAN PERCENT AUTO 1 % (0-1); LYMPHOCYTES ABSOLUTE AUTO 0.68 K/mm3 (0.84-5.20); LYMPHOCYTES PERCENT AUTO 5 % (21-46); MONOCYTES ABSOLUTE AUTO 0.86 K/mm3 (0.16-1.47); MONOCYTES PERCENT AUTO 7 % (4-13); Mean Corpuscular HGB Conc 29.7 g/dL (31.5-36.5); Mean Corpuscular Volume 69 fL (80-100); NEUTROPHILS ABSOLUTE AUTO 11.37 K/mm3 (1.96-9.15); NEUTROPHILS PERCENT AUTO 87 % (41-73); NRBC ABSOLUTE 0.02 K/mm3 (0.00-0.02); NRBC Auto 0.2 /100 WBC (0.0-0.2); Platelet Count 393 K/mm3 (150-400); RDW Coefficient Variation 20.4 % (11.7-14.2); RDW Standard Deviation 48.6 fL (35.1-46.3)
[2025-02-24] MEDS ORDERED: NS 1,000 ML IV ONE (12:31)
[2025-02-24 12:36] LABS: Alanine Aminotransfer (ALT/SGP 340 U/L (12-78); Albumin, Blood 2.5 g/dL (3.4-5.0); Albumin/Globulin Ratio 0.6 (0.8-1.8); Anion Gap 18 mmol/L (3-11); Aspartate Aminotrans (AST/SGOT 519 U/L (12-37); Bilirubin, Total 0.9 mg/dL (0.1-1.0); Blood Urea Nitrogen 24 mg/dL (8-24); CHOL/HDL RATIO 4.5; CO2, Blood 19 mmol/L (21-32); Calcium, Blood 8.3 mg/dL (8.5-10.1); Chloride, Blood 107 mmol/L (98-108); Cholesterol 116 mg/dL (50-200); Creatinine, Blood 1.53 mg/dL (0.60-1.20); Globulin, Blood 4.3 g/dL (2.2-4.0); Glucose, Blood 123 mg/dL (70-99); HDL Cholesterol 26 mg/dL (>39); LDL/HDL RATIO 2.9; Low Density Lipoprotein Chol 74 mg/dL (0-110); Magnesium, Blood 2.2 mg/dL (1.6-2.4); Potassium, Blood 3.6 mmol/L (3.5-5.5); Sodium, Blood 140 mmol/L (136-145); Total Protein, Blood 6.8 g/dL (6.4-8.2); Triglycerides 79 mg/dL (30-160); Very Low Density Lipoprot Chol 16 mg/dL (6-32)
[2025-02-24] MEDS ORDERED: NS 1,000 ML IV SCH ×2 (12:40→13:15)
[2025-02-24] MEDS ORDERED: Cefepime HCl 2,000 MG in NS 100 ML IV ONE (13:15)
[2025-02-24 15:22] LABS: CORONAVIRUS COVID-19 AG Negative (NEGATIVE)
[2025-02-24] MEDS ORDERED: Morphine Sulfate 20 MG/1ML 1 ML Oral Syringe SL PRN (15:25)
[2025-02-24] MEDS ORDERED: Atropine Sulfate 1% Opth Soln 2ML BTL SL PRN (15:30)
--- NOTE | 2025-02-24 15:34 | NUR ---
PALLIATIVE CARE CONSULT: CALLED TO ER 4 FOR EMERGENT SITUATION. PT CAME FROM [facility]. DEBO BEEBE COMFIRMED PT TO BE DNR COMFORT MEASURES ONLY SO PT WAS THEN PLACED ON COMFORT MEASURES. IN THE MEANTIME PRESSORS WERE STARTED DUE TO VERY LOW BLOOD PRESSURES. CALLED DEBO BEEBE AT [phone] TO EXPRESS CONCERNS PT MAY NOT LIVE LONG AFTER PRESSORS ARE STOPPED AND GIVING OPPORTUNITY FOR FAMILY TO COME AND SEE PT PRIOR TO STOPPING PRESSORS. ABIEL REQUESTS HE STAY ON PRESSORS UNTIL 1630 SO PT DAUGHTER AND HER CAN SEE HIM. ABIEL EXPRESSED THANKFULNESS FOR THIS CONSIDERATION. UPDATED PRIMARY RN. DR. MACE GOING TO PLACE COMFORT CARE ORDERS AND MEDICATIONS.
--- NOTE | 2025-02-24 16:52 | NUR ---
"Spiritual Care Attempted | Comfort Care Pt. is still in the ED when this elevator repairer apprentice attempted a visit. Pt. non responsive. No family present at the time. Will remain available."
[2025-02-24 18:05] VITALS: BP 87/63
[2025-02-24] MEDS ORDERED: CALASOOTHE 0.4113 GM TOP (18:07)
[2025-02-24] MEDS ORDERED: DOCU100 PO (18:08)
[2025-02-24] MEDS ORDERED: OMEP20ER PO (18:08)
[2025-02-24] MEDS ORDERED: ONELAX10 MG PR (18:12)
[2025-02-24] MEDS ORDERED: Haloperidol2 MG/1 ML PO (18:13)
[2025-02-24] MEDS ORDERED: LOPE2C PO (18:14)
[2025-02-24] MEDS ORDERED: HYDROCORTISON28.4 G2 TOP (18:14)
[2025-02-24] MEDS ORDERED: NYAMYC15 G1 TOP (18:17)
[2025-02-24] MEDS ORDERED: DULCOLAX400 MG/5 M PO (18:17)
[2025-02-24] MEDS ORDERED: TRAZ100 PO (18:18)
--- NOTE | 2025-02-24 19:14 | NUR ---
ADMIT PATIENT ADMITTED FROM ER AT APPROX 1800. PATIENT OPENS EYES TO SOUNDS, BUT NOT TALKING. DAUGHTER AT BEDSIDE. COMFORT CARE ORDERS PLACED. PATIENT SETTLED INTO ROOM. ADMISSION HISTORY COMPLETED FROM [facility], [facility] DOCUMENTS AND FAMILY. PATIENT ON 6L FOR COMFORT. COMFORT CART ORDERED. CALL LIGHT IN REACH. PATIENT RESTING COMFORTABLY.
== END 2025-02-25 01:34 ==
LOC: ER 11:29 → MEDS 11:30
PROVIDERS: Emergency Medicine; ADMIT Family Medicine
DX: I21.3 ST elevation (STEMI) myocardial infarction of unspecified site (principal); R57.9 Shock, unspecified; N17.9 Acute kidney failure, unspecified; R79.89 Other specified abnormal findings of blood chemistry; J96.01 Acute respiratory failure with hypoxia; J90 Pleural effusion, not elsewhere classified; R91.8 Other nonspecific abnormal finding of lung field; E87.20 Acidosis, unspecified; D72.829 Elevated white blood cell count, unspecified; D64.9 Anemia, unspecified; E03.9 Hypothyroidism, unspecified; E78.5 Hyperlipidemia, unspecified; F03.90 Unspecified dementia, unspecified severity, without behavioral disturbance, psychotic disturbance, mood disturbance, and anxiety; G25.0 Essential tremor; K59.00 Constipation, unspecified; Z66 Do not resuscitate; Z87.820 Personal history of traumatic brain injury; Z87.891 Personal history of nicotine dependence; Z79.890 Hormone replacement therapy; Z79.899 Other long term (current) drug therapy; Z88.0 Allergy status to penicillin
CPT/HCPCS: 36415; 71045; 74177; 80047; 80053; 80061; 83605; 83690; 83735; 84484; 85014; 85025; 86850; 86900; 86901; 87040; 87428-QW; 93005; 93010; 96365-59; 96366; 96375; 96376; 99285-25; A9270; G0378; J0692; J2270; J2405; J7030; J7050; Q9967